=== PATIENT | male | born 1950 | race Caucasian/White ===

== ENCOUNTER → 2017-02-09 | Outpatient (CLI) | payer OTHER, MEDICARE | LOC: FIMAGING 16:13 | PROVIDERS: ATTEND Physician Assistant | DX: M79.661 Pain in right lower leg (principal) ==

== ENCOUNTER 2017-10-20 15:52 | Emergency (ER) | payer OTHER, MEDICARE ==
[2017-10-20] MEDS ORDERED: NS 1,000 ML IV ONE (16:07)
[2017-10-20] MEDS ORDERED: ONDANSETRON 4 MG/2 ML VIAL IVP ONE (16:07)
[2017-10-20] MEDS ORDERED: HYDROmorphONE/DILAUDID 1 MG/ML INJ IVP ONE (16:07)
[2017-10-20] MEDS ORDERED: HYDROmorphONE/DILAUDID 2 MG/ML INJ ONE ×2 (16:10→16:39)
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
[2017-10-20 16:15] VITALS: BP 144/80
[2017-10-20 16:21] LABS: PLATELET COUNT 236 10^3/uL (150-400)
[2017-10-20 16:38] LABS: INR 1.06 (0.83-1.16)
[2017-10-20] MEDS ORDERED: HYDROmorphONE/DILAUDID 2 MG/ML INJ IVP ONE (16:40)
[2017-10-20] MEDS ORDERED: OXYCODONE/APAP 5/325MG PREPACK#4 BTL TAKEHOME ONE (18:30)
== END 2017-10-20 19:22 | disposition home or self-care (01) ==
PROC: 0SSNXZZ Reposition Left Metatarsal-Phalangeal Joint, External Approach (ICD-10-PCS; principal; 2017-10-20)
DX: S93.325A Dislocation of tarsometatarsal joint of left foot, initial encounter (principal); J45.909 Unspecified asthma, uncomplicated; W11.XXXA Fall on and from ladder, initial encounter; Y99.8 Other external cause status; Y93.89 Activity, other specified
CPT/HCPCS: 28630; 73590; 73610; 73630; 73700; 96361; 96374; 96375; 99285; J1170; J2405

== ENCOUNTER → 2018-08-28 | Outpatient (CLI) | payer OTHER, MEDICARE | LOC: FIMAGING 17:42 | PROVIDERS: ATTEND Physical Medicine & Rehabilitation | DX: M51.26 Other intervertebral disc displacement, lumbar region (principal); M51.37 Other intervertebral disc degeneration, lumbosacral region; N32.89 Other specified disorders of bladder ==